=== PATIENT | female | born 1995 | race Caucasian/White ===

== ENCOUNTER 2023-11-18 07:31 | Emergency (ER) | payer BC ==
[2023-11-18 07:57] LABS: BASOPHILS ABSOLUTE AUTO 0.02 K/uL (0.00-0.20); BASOPHILS PERCENT AUTO 0.3 % (0.0-1.0); EOSINOPHILS PERCENT AUTO 1.4 % (0.0-6.0); HEMATOCRIT 39.5 % (37.0-47.0); HEMOGLOBIN 13.1 g/dL (12.0-16.0); IMMATURE GRAN ABSOLUTE AUTO 0.02 K/uL (0.00-0.05); IMMATURE GRAN PERCENT AUTO 0.3 % (0.0-0.4); LYMPHOCYTES ABSOLUTE AUTO 2.61 K/uL (1.00-4.80); LYMPHOCYTES PERCENT AUTO 36.6 % (24.0-44.0); MEAN CORPUSCULAR HEMOGLOBIN 29.4 pg (28.0-32.0); MEAN CORPUSCULAR HGB CONC 33.2 g/dL (32.0-36.0); MEAN CORPUSCULAR VOLUME 88.8 fL (83.0-99.0); MEAN PLATELET VOLUME 9.5 fL (9.4-12.3); MONOCYTES ABSOLUTE AUTO 0.49 K/uL (0.00-0.80); MONOCYTES PERCENT AUTO 6.9 % (0.0-8.0); NEUTROPHILS ABSOLUTE AUTO 3.89 K/uL (1.80-7.70); NEUTROPHILS PERCENT AUTO 54.5 % (41.0-71.0); PLATELET COUNT,PLT 203 K/uL (150-400); RED BLOOD CELL COUNT 4.45 M/uL (4.10-5.30); WHITE BLOOD CELL COUNT,WBC 7.13 K/uL (3.9-11.3)
[2023-11-18] MEDS: Ondansetron 4 MG/2 ML SDV IVPUSH ONE (08:03)
[2023-11-18] MEDS: Sodium Chloride 0.9% 10 ML Syringe FLUSH PRN (08:04)
[2023-11-18] MEDS: Sodium Chloride 0.9% 1,000 ML IV ONE (08:04)
[2023-11-18] MEDS: Sodium Chloride 0.9% 2.5 ML Syringe FLUSH PRN (08:04)
[2023-11-18] MEDS: Morphine 2 MG/ML SYRINGE IVPUSH ONE (08:05)
[2023-11-18 08:22] LABS: ALBUMIN 4.2 g/dL (3.4-5.0); BILIRUBIN TOTAL 0.6 mg/dL (0.2-1.0); CALCIUM 8.8 mg/dL (8.5-10.1); CARBON DIOXIDE,CO2 22.8 mmol/L (21.0-32.0); EST CRCL DRUG DOSING (CG) 69.51 mL/min; POTASSIUM,K 3.4 mmol/L (3.5-5.1); PROTEIN TOTAL,TP 6.6 g/dL (6.4-8.2)
[2023-11-18 08:23] LABS: A/G RATIO 1.8 (0.9-1.6)
== END 2023-11-18 10:26 | disposition home or self-care (01) ==
LOC: MW.ED 07:31
DX: R10.12 Left upper quadrant pain (principal); R10.13 Epigastric pain; R10.11 Right upper quadrant pain; R10.31 Right lower quadrant pain; Z79.899 Other long term (current) drug therapy
CPT/HCPCS: 36415; 76856; 80053; 83690; 84703; 85025; 96361; 96374; 99284; J2405; J3490; J7030

== ENCOUNTER 2024-07-30 23:48 | Observation (INO) | payer BC | END 2024-07-31 00:45 | disposition home or self-care (01) | LOC: MW.OBCHECK 23:48 → MW.OB 23:52 → MW.OBCHECK 07-31 00:30 → MW.OB 07-31 00:30 | PROVIDERS: ADMIT Obstetrics & Gynecology; ATTEND Obstetrics & Gynecology | DX: O36.8130 Decreased fetal movements, third trimester, not applicable or unspecified (principal); Z3A.32 32 weeks gestation of pregnancy | CPT/HCPCS: 59025; 99213 ==

== ENCOUNTER 2024-09-27 21:01 | Inpatient (IN) | payer BC ==
[2024-09-27] MEDS ORDERED: Sodium Chloride 0.9% 20 ML SDV IV PRN (22:07)
[2024-09-27] MEDS ORDERED: Methylergonovine 0.2 MG/1 ML Amp IM PRN (22:07)
[2024-09-27] MEDS ORDERED: Misoprostol 200 MCG Tab PO PRN (22:07)
[2024-09-27] MEDS ORDERED: Misoprostol 200 MCG Tab RECTAL PRN (22:07)
[2024-09-27] MEDS ORDERED: Sodium Chloride 0.9% 10 ML Syringe FLUSH PRN (22:07)
[2024-09-27] MEDS ORDERED: Ondansetron 4 MG/2 ML SDV IVPUSH PRN (22:07)
[2024-09-27] MEDS ORDERED: Misoprostol 25 MCG (1/4 of 100 MCG) Tab VAG PRN ×2 (22:07)
[2024-09-27] MEDS ORDERED: Carboprost Tromethamine 250 MCG/1 mL Vial IM PRN (22:07)
[2024-09-27] MEDS ORDERED: Sodium Chloride 0.9% 2.5 ML Syringe FLUSH PRN (22:07)
[2024-09-27] MEDS ORDERED: Lidocaine 1% 50 ML MDV INJECT PRN (22:07)
[2024-09-27] MEDS ORDERED: Water For Irrigation,Sterile 1,000 ML Container IRR PRN (22:07)
[2024-09-27] MEDS ORDERED: Terbutaline 1 MG/ML SDV SUBCUT PRN (22:07)
[2024-09-27 22:51] LABS: HEMATOCRIT 35.6 % (37.0-47.0); HEMOGLOBIN 12.4 g/dL (12.0-16.0); MEAN CORPUSCULAR HEMOGLOBIN 30.7 pg (28.0-32.0); MEAN CORPUSCULAR HGB CONC 34.8 g/dL (32.0-36.0); MEAN CORPUSCULAR VOLUME 88.1 fL (83.0-99.0); MEAN PLATELET VOLUME 9.7 fL (9.4-12.3); PLATELET COUNT,PLT 236 K/uL (150-400); RED BLOOD CELL COUNT 4.04 M/uL (4.10-5.30); WHITE BLOOD CELL COUNT,WBC 13.23 K/uL (3.9-11.3)
[2024-09-27] MEDS: Lactated Ringers 1,000 ML IV SCH (23:04)
[2024-09-27] MEDS: Ampicillin 2 GM in Sodium Chloride 0.9% 100 ML IV ONE (23:05)
[2024-09-28] MEDS: Butorphanol 1 MG/ML SDV IVPUSH PRN (02:27)
[2024-09-28] MEDS: Ampicillin 1 GM in Sodium Chloride 0.9% 50 ML IV SCH (03:14)
[2024-09-28] MEDS: Ropivacaine HCl/PF 400 MG in Premix Bag 1 BAG EPIDUR SCH (05:10)
[2024-09-28] MEDS ORDERED: ePHEDrine 50 MG/ML SDV IVPUSH PRN (05:28)
[2024-09-28] MEDS ORDERED: Phenylephrine HCl In 0.9% NaCl 1 MG/10 ML Syringe IVPUSH PRN (05:28)
[2024-09-28] MEDS ORDERED: dexmedeTOMIDine HCl 200 MCG/2 ML SDV EPIDUR SCH (05:30)
[2024-09-28] MEDS: Oxytocin/0.9 % Sodium Chloride 30 UNIT/500 ML BAG IV SCH ×2 (15:20→16:15)
[2024-09-28] MEDS ORDERED: Ondansetron 4 MG/2 ML SDV ONE (15:52)
[2024-09-28] MEDS ORDERED: Oxytocin 10 Units/1 ML SDV ONE (15:52)
[2024-09-28] MEDS ORDERED: Ropivacaine 0.5% 5 MG/ML 30 ML SDV ONE (15:52)
[2024-09-28] MEDS ORDERED: Bupivacaine 0.25% 30 ML SDV ONE (15:52)
[2024-09-28] MEDS ORDERED: ceFAZolin 1 GM Vial ONE (15:52)
[2024-09-28] MEDS ORDERED: Ketorolac 30 MG/ML SDV ONE (15:52)
[2024-09-28] MEDS ORDERED: EPINEPHrine 1 MG/1 ML Amp ONE (15:52)
[2024-09-28] MEDS ORDERED: Morphine PF 10 MG/10 ML SDV ONE (15:53)
[2024-09-28] MEDS ORDERED: fentaNYL 100 MCG/2 ML SDV ONE (15:53)
[2024-09-28] MEDS ORDERED: Lidocaine 2% 5 ML SDV ONE (16:16)
[2024-09-28] MEDS ORDERED: Bupivacaine 0.5% 10 ML SDV ONE (16:16)
[2024-09-28] MEDS ORDERED: oxyCODONE 5 MG Tab PO PRN (16:40)
[2024-09-28] MEDS ORDERED: Hydrocortisone 2.5% Crm 30 GM Tube TOP PRN (16:40)
[2024-09-28] MEDS ORDERED: Docusate Sodium 100 MG Cap PO PRN (16:40)
[2024-09-28] MEDS ORDERED: Aluminum Hydroxide/Magnesium Hydroxide/Simethicone Susp 30 ML Cup PO PRN (16:40)
[2024-09-28 19:17] LABS: PH,UMBILICAL ARTERIAL 7.21 (7.18-7.38); PH,UMBILICAL VENOUS 7.27 (7.25-7.45)
[2024-09-28] MEDS: Witch Hazel Medicated Pads 40/Jar TOP PRN (21:47)
[2024-09-28] MEDS: Benzocaine/Menthol 20%-0.5% Spray 78 GM Cannister TOP PRN (21:47)
[2024-09-28] MEDS: Lanolin 100% Cream 7 GM Tube TOP PRN (21:54)
[2024-09-28] MEDS: Ibuprofen 800 MG Tab PO PRN (21:54)
[2024-09-29 06:12] LABS: HEMATOCRIT 31.4 % (37.0-47.0); HEMOGLOBIN 10.4 g/dL (12.0-16.0)
[2024-09-29] MEDS: Phenylephrine HCl In 0.9% NaCl 1 MG/10 ML Syringe ONE (07:44)
[2024-09-29] MEDS: Ropivacaine HCl/PF 200 ML ONE (07:45)
[2024-09-29] MEDS: Bupivacaine 0.5% 10 ML SDV ONE (07:45)
[2024-09-29] MEDS: dexmedeTOMIDine HCl 200 MCG/2 ML SDV ONE (07:45)
[2024-09-29] MEDS: Lidocaine 1% 2 ML ONE (07:45)
[2024-09-29] MEDS: Acetaminophen 500 MG Tab PO PRN (08:55)
[2024-09-29] MEDS ORDERED: Enoxaparin 30 MG/0.3 ML Syringe SUBCUT ONE (20:45)
[2024-09-29] MEDS: Enoxaparin 30 MG/0.3 ML Syringe SUBCUT ONE (21:23)
== END 2024-09-29 21:42 | disposition home or self-care (01) | DRG 560 ==
LOC: MW.OBCHECK 21:01 → MW.OB 21:01 → MW.OBCHECK 22:06 → MW.OB 22:07 → OBSVTOIN 09-28 16:14 → MW.OB 09-28 21:00
PROVIDERS: ADMIT Obstetrics & Gynecology; ATTEND Obstetrics & Gynecology
PROC: 10D07Z6 Extraction of Products of Conception, Vacuum, Via Natural or Artificial Opening (ICD-10-PCS; principal; 2024-09-28)
PROC: 0W8NXZZ Division of Female Perineum, External Approach (ICD-10-PCS; 2024-09-28)
PROC: 3E0R3BZ Introduction of Anesthetic Agent into Spinal Canal, Percutaneous Approach (ICD-10-PCS; 2024-09-28)
DX: O48.0 Post-term pregnancy (principal); Z3A.41 41 weeks gestation of pregnancy; Z37.0 Single live birth; O76 Abnormality in fetal heart rate and rhythm complicating labor and delivery; O99.824 Streptococcus B carrier state complicating childbirth; Z88.8 Allergy status to other drugs, medicaments and biological substances; Z79.899 Other long term (current) drug therapy
CPT/HCPCS: 01967; 36410; 36415; 51702; 59025; 59409; 82803; 84112; 85014; 85018; 85027; 86592; 86850; 86900; 86901; A9270-GY; J0290; J0595; J0665; J0690; J1100; J1650; J1885; J2003; J2274; J2371; J2405; J2590; J2795; J3010; J7120